=== PATIENT | male | born 1995 | race Caucasian/White ===

== ENCOUNTER 2017-08-21 07:39 | Emergency (ER) | payer SELFPAY ==
[~2017-08-21] VITALS: Ht 182.9 cm; Wt 117.9 kg
[2017-08-21] MEDS ORDERED: CLINDAMYCIN PHOS 600 MG/ 4 ML VIAL IM ONE ×2 (08:15→09:00)
[2017-08-21] MEDS ORDERED: TYLENOL WITH C1 EACH PO (08:18)
[2017-08-21] MEDS ORDERED: BACTRIM DS TAB1 EACH PO (08:18)
[2017-08-21] MEDS ORDERED: TRIMETHOPRIM/SULFAMETHOXAZOLE 160-800 MG TAB PO ONE (09:00)
== END 2017-08-21 09:10 | disposition home or self-care (01) ==
LOC: ER 07:39
DX: L73.9 Follicular disorder, unspecified (principal)
CPT/HCPCS: 99282